=== PATIENT | female | born 1960 | race Caucasian/White ===

== ENCOUNTER 2021-05-12 10:21 | Emergency (ER) | payer OTHER ==
[~2021-05-12] VITALS: Ht 160 cm; Wt 63.5 kg
--- NOTE | ~2021-05-12 | EMS ---
[address] [address] EMS Patient Care Report Name: LATONIA SCHUSTER [id number] Admission: 05/12/21 Attend Phys: Discharge: 05/12/21 Date of : 64 Report #: [id number] THIS REPORT FOR: //name// Report Transmitted: 05/12/2021 14:20 EMS Care Summary [facility] Incident [id number] @ 05/12/2021 09:43 Incident Location [address] [place] [address] Patient LATONIA SCHUSTER Female, 61 Years 1960 Patient Address [address] [facility] [address] [place] [address] Patient History None Reported, Patient Allergies No known allergies, Patient Medications Other, Chief Complaint sick Disposition Transported No Lights/[place] Dispatch Reason Sick Person Transported To [facility] Narrative Dispatched to a residence for 61y/o female who is sick. Upon arrival pt. was lying in a chair, A&Ox4. Pt. skin was clammy. Pt. stated that she has felt ill [address] [address] EMS Patient Care Report Name: LATONIA SCHUSTER [id number] Admission: 05/12/21 Attend Phys: Discharge: 05/12/21 Date of : 64 Report #: [id number] and has not eaten solid food for the past 3 weeks. Pt. c/o general weakness, fatigue, and intermittent fever. Pt. was a-febrile with stable VS. Pt. remained stable during transport. IV was started and 700ml NS administered en route. Pt. was transported to [place] for emergency services. Initial Vitals @10:20P: 64,R: 16,BP: 129/79,GCS: 15,SpO2: 94,Revised Trauma: 12, @10:05P: 66,R: 16,BP: 119/89,GCS: 15,SpO2: 95,Revised Trauma: 12, @09:50P: 66,R: 16,BP: 124/92,Pain: 0/10,GCS: 15,Temp: 97.2F,Glucose: 111,SpO2: 94,Revised Trauma: 12, Impression Generalized Weakness Procedures @10:00Saline Lock 10cc (20 ga) Site: Hand-LeftResponse: UnchangedSucceeded@10:10Normal Saline (.9% NaCl) 700cc () Response: UnchangedSucceeded Timeline 09:41,Call Received 09:43,Dispatched 09:43,En Route 09:46,Initial Responder On Scene 09:46,On Scene 09:48,At Patient 09:50,BP: 124/92 M,PULSE: 66,RR: 16 R,SPO2: 94 Ox,ETCO2: ,B,PAIN: 0,GCS: 15, 09:58,Depart Scene 10:00,Saline Lock 10cc 20 ga Site: Hand-Left,Response: UnchangedSucceeded, 10:05,BP: 119/89 M,PULSE: 66,RR: 16 R,SPO2: 95 Ox,ETCO2: ,BG: ,PAIN: ,GCS: 15, 10:10,Normal Saline (.9% NaCl) 700cc Site: ,Response: UnchangedSucceeded, 10:18,At Destination 10:20,Transfer Patient 10:20,BP: 129/79 M,PULSE: 64,RR: 16 R,SPO2: 94 Ox,ETCO2: ,BG: ,PAIN: ,GCS: 15, 10:32,Call Closed 10:50,In District Disclaimer v1.1 Copyright 2020 [employer] This EMS Care Summary contains data elements from the applicable legal record (which may be displayed differently). It is designed to provide pertinent information for the following purposes: continuity of care, clinical quality, and state data reporting. The complete legal record is available to ED staff and administrators of the receiving hospital in [employer]'s Patient Tracker[place] [address] EMS Patient Care Report Name: LATONIA SCHUSTER Room: [facility] Zaria#: [id number] Admission: 05/12/21 Attend Phys: Discharge: 05/12/21 Date of : 64 Report #: [id number] is provided "as is."
[2021-05-12 12:58] LABS: HEMATOCRIT 41.6 % (37.0-47.0); MCH 29.7 pg (26.0-34.0); MCHC 33.7 g/dL (28.0-37.0); MCV 87.9 fL (80.0-100.0); MPV 6.9 fl. (7.2-11.1); NUCLEATED RBCS 0 /100WBC; PLATELET COUNT* 362 thou/uL (150-400); RBC 4.73 mil/uL (4.20-5.00); RDW-CV 12.4 % (10.5-14.5); WBC 8.2 thou/uL (4.0-11.0)
[2021-05-12 13:04] LABS: CALCIUM 8.3 mg/dL (8.5-10.1); CREATININE 0.7 mg/dL (0.6-1.3); POTASSIUM 3.3 mmol/L (3.5-5.1)
[2021-05-12 13:09] LABS: ALBUMIN 3.8 g/dL (3.4-5.0); TOTAL BILIRUBIN 0.6 mg/dL (<0.1-1.0)
[2021-05-12 13:11] LABS: URINE BLOOD NEGATIVE (Negative); URINE CLARITY CLEAR; URINE COLOR YELLOW; URINE GLUCOSE-RANDOM NEGATIVE (Negative); URINE KETONES 1+ (Negative); URINE LEUKOCYTES-REFLEX NEGATIVE (Negative); URINE NITRITE-REFLEX NEGATIVE (Negative); URINE PROTEIN TRACE (Negative); URINE UROBILINOGEN 0.2 E.U./dl (0.2-1.0)
[2021-05-12 13:12] LABS: ICTOTEST (BILI CONFIRMATORY) Negative (Negative); URINE BILIRUBIN 1+ (Negative)
--- NOTE | 2021-05-12 13:50 | EKG ---
[place] [address] ELECTROCARDIOGRAM REPORT Name: LATONIA SCHUSTER Room: [facility]#: [id number] Admission: 05/12/21 Attend Phys: Discharge: Date of : 64 Date of Service: 05/12/21 1225 Report #: [id number] THIS REPORT FOR: //name// [facility] ED Test Date: 2021-05-12 Test Time: 12:25:11 Pat Name: LATONIA SCHUSTER Department: Room: Gender: Facilities Maintenance Assistant: : 1960 Requested By: Augustin Vann Order Number: [id number] MD: Beltran Honeycutt Measurements Intervals [place] Rate: 50 P: -14 SD: 133 QRS: 15 QRSD: 106 T: 45 QT: 461 QTc: 421 Interpretive Statements Sinus bradycardia Low voltage, precordial leads Abnormal R-wave progression, early transition No previous ECG available for comparison Electronically Signed On 05-12-2021 13:50:18 CDT by Beltran Honeycutt [email or web address] <ELECTRONICALLY SIGNED> By: Beltran Honeycutt MD, [facility] 05/12/21 1350 1225 1225 Beltran Honeycutt MD, [facility] /EPI
[2021-05-12 13:55] VITALS: BP 126/68
[2021-05-12] MEDS ORDERED: ZOFRAN ODT4 MG DISSOLVE (14:05)
[2021-05-12 14:10] LABS: ABSOLUTE LYMPHOCYTES 1.7 thou/uL (0.8-5.3); ABSOLUTE MONOCYTES 0.8 thou/uL (0.0-1.2); ABSOLUTE NEUTROPHILS 5.7 thou/uL (1.6-8.1); PLATELET ESTIMATE ADEQUATE
== END 2021-05-12 13:56 | disposition home or self-care (01) ==
LOC: M.ERS 10:21
PROVIDERS: Family Medicine; Nurse Practitioner Family
DX: R53.1 Weakness (principal); Z20.822 Contact with and (suspected) exposure to COVID-19